=== PATIENT | male | born 1995 | race Caucasian/White ===

== ENCOUNTER 2017-12-23 10:33 | Emergency (ER) | payer OTHER ==
[2017-12-23] MEDS ORDERED: TETRACAINE HCL 0.5% OPH SOLN 4 ML OU ONE (11:29)
--- NOTE | 2017-12-23 12:59 | ER Document Report ---
HPI - HPI Pain Level: 3 Notes: Patient is a 22-year-old otherwise healthy male who presents with chief complaint of right eye swelling, erythema and pain. He reports that the pain started Monday morning when he woke up with his eye swollen. He states he was in the field the day previous to this and he thinks that there may be something in his eye. Patient [place] bacitracin ointment to the eyelid. He states that the inside of his eye was not examined. Patient reports he was seen again 2 days later by another provider who apparently reaffirmed to the first providers recommendation. Since then he says the pain has gotten worse, he has blurred vision out of the eye, he states that he did instill an eyedrop into his eye called old ofloxacin that his had. He states this has not changed the pain whatsoever. Visual acuity right eye 20/50, left eye 20/20, both eyes 20/25 - EENT EENT: REPORTS: Eye problems - right eye pain w/ redness - CARDIOVASCULAR Cardiovascular: DENIES: Chest pain - RESPIRATORY Respiratory: DENIES: Trouble Breathing, Coughing - GASTROINTESTINAL Gastrointestinal: DENIES: Abdominal Pain, Black / Bloody Stools - URINARY Urinary: DENIES: Dysuria, Urgency, Frequency Past Medical History - General Information source: Patient - Social History Smoking Status: Never Smoker Frequency of alcohol use: None Drug Abuse: None Lives with: Spouse/Significant other Family History: Reviewed & Not Pertinent Patient has suicidal ideation: No Patient has homicidal ideation: No - Medical History Medical History: Negative Renal/ Medical History: Denies: Hx Peritoneal Dialysis Surgical Hx: Negative - Immunizations Immunizations up to date: Yes Vertical Provider Document - CONSTITUTIONAL Notes: PHYSICAL EXAMINATION: GENERAL: Well-appearing, well-nourished and in no acute distress. HEAD: Atraumatic, normocephalic. EYES: Pupils equal round extraocular movements intact, conjunctiva injected to right eye, erythema noted, see course notes. ENT: Nares patent NECK: Normal range of motion LUNGS: No respiratory distress Musculoskeletal: Normal range of motion NEUROLOGICAL: Normal speech, normal gait. PSYCH: Normal mood, normal affect. SKIN: Warm, Dry, normal turgor, no rashes or lesions noted. - INFECTION CONTROL TRAVEL OUTSIDE OF THE [place] IN LAST 30 DAYS: No Course - Re-evaluation Re-evalutation: Eye examination was performed. Tetracaine 1 drop was instilled to the right eye. Fluorescein stain was then applied. There was no foreign body observed, no uptake of the floor seen stain. The eye is very injected to the entire sclera. With mild swelling. Mild swelling was present. Plan to consult attending physician at this time. Dr. Ignacio came to bedside to evaluate the patient. He states that we cannot rule out iritis or uveitis. He recommends consulting ophthalmology. 12/23/17 12:53 Call placed to [facility] - [place], [place] to consult with ophthalmology. Awaiting callback. Received call back from Dr. Rivas, optical fabricator at [place]. He agrees to see patient in his office tomorrow at 130. He would like patient placed on Vigamox as well as atropine drops. Okay to discharge patient home at this time. Patient given contact info for this physician patient verbalizes understanding of instructions. - Vital Signs Vital signs: Temp Pulse Resp BP Pulse Ox 97.9 F 65 16 151/72 H 95 12/23/17 11:52 12/23/17 11:52 12/23/17 11:52 12/23/17 11:52 12/23/17 11:52 Discharge - Discharge Clinical Impression: Redness of eye, right Condition: Stable Disposition: HOME, SELF-CARE Additional Instructions: I have spoken to Dr. Rivas, the optical fabricator at the [facility]. He would like to see you tomorrow in his office at 130. This is located in the eye clinic at the [facility] near the [facility]. He said that the clinic may look like it is closed however he will find you there at about 130. Use the eyedrops that I have prescribed exactly as directed. You may also use artificial tears 1 drop every 2 hours for any pain or dryness. Prescriptions: Atropine Sulfate [Atropine 1% Oph Soln 5 ml] 1 - 2 drop OS QID #1 bottle Moxifloxacin HCl [Vigamox] 1 drop OS TID #1 bottle
[2017-12-23 13:45] VITALS: BP 116/55
== END 2017-12-23 13:45 | disposition home or self-care (01) ==
LOC: ER 10:33
DX: L53.9 Erythematous condition, unspecified (principal); H57.11 Ocular pain, right eye
CPT/HCPCS: 99283

== ENCOUNTER 2019-05-02 18:42 | Emergency (ER) | payer OTHER ==
--- NOTE | 2019-05-02 20:40 | ER Document Report ---
HPI - HPI Time Seen by Provider: 05/02/19 20:33 Onset: Other - This is a 23-year-old male who presented to the emergency room today with sinus fullness nasal discharge cough congestion ongoing for approximately 4 days. Onset/Duration: Sudden Quality of pain: No pain Pain Level: 2 Associated Symptoms: None, Nonproductive cough Exacerbated by: Denies Relieved by: Denies Similar symptoms previously: Yes Recently seen / treated by doctor: Yes Past Medical History - General Information source: Patient - Social History Smoking Status: Never Smoker Cigarette use (# per day): No Chew tobacco use (# tins/day): No Smoking Education Provided: No Frequency of alcohol use: None Drug Abuse: None Family History: Reviewed & Not Pertinent Patient has suicidal ideation: No Patient has homicidal ideation: No Renal/ Medical History: Denies: Hx Peritoneal Dialysis - Immunizations Immunizations up to date: Yes Vertical Provider Document - CONSTITUTIONAL Agree With Documented VS: Yes - INFECTION CONTROL TRAVEL OUTSIDE OF THE [place] IN LAST 30 DAYS: No - HEENT HEENT: Atraumatic, Conjuctival Injection, Normocephalic, PERRLA, Pharyngeal Exudate, Pharyngeal Erythema - NECK Neck: Normal Inspection - RESPIRATORY Respiratory: Rhonchi Course - Vital Signs Vital signs: Temp Pulse Resp BP Pulse Ox 98.9 F 66 16 124/57 L 96 05/02/19 18:48 05/02/19 18:48 05/02/19 18:48 05/02/19 18:48 05/02/19 18:48 - Transfer of Care Notes: 05/02/19 20:38 Copious nasal discharge scant rhonchi Discharge - Discharge Clinical Impression: Reactive airway disease Qualifiers: Asthma severity: moderate Asthma persistence: persistent Asthma complication type: uncomplicated Qualified Code(s): J45.40 - Moderate persistent asthma, uncomplicated Disposition: HOME, SELF-CARE Instructions: Oral Narcotic Medication ([facility]) Additional Instructions: Reactive Airway Disease You have "reactive airway disease." This means that your bronchial tubes constrict (narrow) or secrete extra mucous as a reaction to something that irritates them. The airway's reaction can cause shortness of breath, wheezing, or coughing. With reactive airway disease, your lungs can react to respiratory infections, allergic reactions, or inhaled dust, smoke, chemicals, or even cold air. Asthma is one type of reactive airway disease. Emergency treatment of bronchospasm may include adrenaline shots or bronchodilator aerosol. If we used these medicines to treat you, you may feel lightheaded and have a rapid pulse for an hour or two. Rest and get plenty of fluids. At home, we'll treat you with a bronchodilator inhaler. Antibiotics and corticosteroids may be required for some patients. Until you recover, avoid chemical fumes, dusts, pollens, and exercising in very cold or dry air. If you smoke, stop now!! If you develop a fever, increased wheezing, chest pain, or severe shortness of breath, you should contact your doctor immediately. Prescriptions: Amoxicillin/Potassium Clav [Augmentin 875-125 Tablet] 1 tab PO Q12 10 Days #20 tablet
[2019-05-02 20:49] VITALS: BP 114/53
== END 2019-05-02 20:50 | disposition home or self-care (01) ==
LOC: ER 18:42
DX: J45.40 Moderate persistent asthma, uncomplicated (principal); R09.89 Other specified symptoms and signs involving the circulatory and respiratory systems; R05 Cough
CPT/HCPCS: 99283